=== PATIENT | female | born 1950 | race Caucasian/White ===

== ENCOUNTER 2019-08-14 09:11 | Inpatient (IN) ==
[2019-08-15] MEDS ORDERED: Diphenoxylate/Atropine 1 TAB TABLET PO PRN (17:53)
[2019-08-15] MEDS ORDERED: cloNIDine HCl 0.1 MG TABLET PO PRN (17:53)
[2019-08-15] MEDS: *HR* OxyCODONE Immed Rel 15 MG TABLET PO PRN (19:27)
[2019-08-15] MEDS: FLUoxetine 20 MG CAPSULE PO SCH (20:18)
[2019-08-15] MEDS: *HR* Warfarin 5 MG TABLET PO SCH (20:18)
[2019-08-15] MEDS: *HR* Enoxaparin 100 MG/ML SYRINGE SQ SCH (20:18)
[2019-08-16 05:16] LABS: Basophils % 0.3 %; Eosinophils % 0.7 %; Hematocrit 21.2 % (35.3-44.9); Hemoglobin 7.2 g/dL (11.5-15.4); Immature Granulocytes % 1.3 % (0-4); Lymphocytes # 0.5 K/mcL (0.6-4.6); Lymphocytes % 15.7 %; Mean Corpuscular Hemoglobin 29.4 pg (28.0-33.3); Mean Corpuscular Volume 86.5 fL (83.0-100.0); Monocytes # 0.3 K/mcL (0.0-1.3); Neutrophils # 2.2 K/mcL (1.6-8.9); Platelet Count 193 K/mcL (140-400); Red Blood Count 2.45 M/mcL (3.82-4.97); Red Cell Distribution Width 13.2 % (11.5-14.5)
[2019-08-16 05:26] LABS: INR 1.1
[2019-08-16 05:36] LABS: BUN/Creatinine Ratio 45 (6-26); Blood Urea Nitrogen 26 mg/dL (8-23); Calcium 8.3 mg/dL (8.6-10.3); Carbon Dioxide 27 mEq/L (23-29); Chloride 101 mEq/L (98-107); Glucose 112 mg/dL (70-105); Osmolality,Calculated 288 (280-300); Potassium 3.6 mEq/L (3.5-5.1); Sodium 136 mEq/L (136-145); eGFR For African Americans > 60 (> 60); eGFR For Non-African Americans > 60 (> 60)
[2019-08-16] MEDS: *HR* Enoxaparin 100 MG/ML SYRINGE SQ SCH ×2 (06:20→16:57)
[2019-08-16] MEDS: *HR* OxyCODONE Immed Rel 15 MG TABLET PO PRN ×3 (06:20→19:57)
[2019-08-16] MEDS: Aspirin Enteric Coated 81 MG Tablet PO SCH (08:43)
[2019-08-16] MEDS: FLUoxetine 20 MG CAPSULE PO SCH ×2 (08:43→19:57)
[2019-08-16] MEDS: Venlafaxine XR (24 HR) 150 MG CAP.ER.24H PO SCH (08:43)
[2019-08-16] MEDS: dexAMETHasone 4 MG TABLET PO SCH (08:43)
[2019-08-16] MEDS ORDERED: *HR* Warfarin 5 MG TABLET PO SCH (18:00)
[2019-08-16] MEDS: *HR* LORazepam 0.5 MG TABLET PO PRN (19:56)
[2019-08-17] MEDS: *HR* OxyCODONE Immed Rel 15 MG TABLET PO PRN ×4 (02:14→22:15)
[2019-08-17 05:50] LABS: Basophils % 0.2 %; Eosinophils % 0.5 %; Hematocrit 21.7 % (35.3-44.9); Hemoglobin 7.4 g/dL (11.5-15.4); Immature Granulocytes % 2.8 % (0-4); Lymphocytes % 15.3 %; Mean Corpuscular HGB Conc 34.1 g/dL (31.6-35.5); Mean Corpuscular Hemoglobin 29.6 pg (28.0-33.3); Mean Corpuscular Volume 86.8 fL (83.0-100.0); Mean Platelet Volume 10.1 fL (9.4-12.4); Monocytes # 0.4 K/mcL (0.0-1.3); Monocytes % 10.1 %; Nucleated Red Blood Cells 0.7 /100 WBC (0); Platelet Count 219 K/mcL (140-400); Red Cell Distribution Width 13.1 % (11.5-14.5); Segmented Neutrophils % 71.1 %; White Blood Count 4.2 K/mcL (4.3-11.1)
[2019-08-17 05:51] LABS: Lymphocytes # 0.6 K/mcL (0.6-4.6)
[2019-08-17 05:53] LABS: INR 1.3; Prothrombin Time 14.8 Seconds (9.4-12.1)
[2019-08-17] MEDS: *HR* Enoxaparin 100 MG/ML SYRINGE SQ SCH ×2 (06:05→16:56)
[2019-08-17] MEDS: Aspirin Enteric Coated 81 MG Tablet PO SCH (09:36)
[2019-08-17] MEDS: FLUoxetine 20 MG CAPSULE PO SCH ×2 (09:36→22:15)
[2019-08-17] MEDS: Venlafaxine XR (24 HR) 150 MG CAP.ER.24H PO SCH (09:37)
[2019-08-17] MEDS: dexAMETHasone 4 MG TABLET PO SCH (09:37)
[2019-08-17] MEDS: *HR* Warfarin 5 MG TABLET PO SCH (17:00)
[2019-08-17] MEDS: *HR* LORazepam 0.5 MG TABLET PO PRN (22:15)
[2019-08-18] MEDS: *HR* Enoxaparin 100 MG/ML SYRINGE SQ SCH ×2 (04:49→17:28)
[2019-08-18] MEDS: *HR* OxyCODONE Immed Rel 5 MG TABLET PO PRN ×4 (04:50→23:15)
[2019-08-18 06:11] LABS: INR 1.7; Prothrombin Time 19.2 Seconds (9.4-12.1)
[2019-08-18] MEDS ORDERED: Ergocalciferol (VIT D2) 50,000 UNIT (1.25MG) CAP PO SCH (09:00)
[2019-08-18] MEDS: dexAMETHasone 4 MG TABLET PO SCH (09:30)
[2019-08-18] MEDS: Lisinopril 20 MG TABLET PO SCH (09:30)
[2019-08-18] MEDS: *HR* LORazepam 0.5 MG TABLET PO PRN (09:30)
[2019-08-18] MEDS: hydroCHLOROthiazide 25 MG TABLET PO SCH (09:30)
[2019-08-18] MEDS: FLUoxetine 20 MG CAPSULE PO SCH ×2 (09:30→19:32)
[2019-08-18] MEDS: Aspirin Enteric Coated 81 MG Tablet PO SCH (09:31)
[2019-08-18] MEDS: Venlafaxine XR (24 HR) 150 MG CAP.ER.24H PO SCH (09:31)
[2019-08-18] MEDS: Ergocalciferol (VIT D2) 50,000 UNIT (1.25MG) CAP PO SCH (09:50)
[2019-08-18] MEDS: *HR* Warfarin 5 MG TABLET PO SCH (17:28)
[2019-08-19 06:04] LABS: INR 1.6; Prothrombin Time 18.7 Seconds (9.4-12.1)
[2019-08-19 06:16] LABS: eGFR For African Americans > 60 (> 60); eGFR For Non-African Americans > 60 (> 60)
[2019-08-19] MEDS: *HR* Enoxaparin 100 MG/ML SYRINGE SQ SCH ×2 (06:54→17:47)
[2019-08-19] MEDS: *HR* OxyCODONE Immed Rel 5 MG TABLET PO PRN ×3 (06:55→22:36)
[2019-08-19] MEDS: dexAMETHasone 4 MG TABLET PO SCH (07:51)
[2019-08-19] MEDS: hydroCHLOROthiazide 25 MG TABLET PO SCH (07:51)
[2019-08-19] MEDS: *HR* LORazepam 0.5 MG TABLET PO PRN ×2 (07:51→20:47)
[2019-08-19] MEDS: Aspirin Enteric Coated 81 MG Tablet PO SCH (07:54)
[2019-08-19] MEDS: FLUoxetine 20 MG CAPSULE PO SCH ×2 (07:54→20:47)
[2019-08-19] MEDS: Venlafaxine XR (24 HR) 150 MG CAP.ER.24H PO SCH (07:54)
[2019-08-19] MEDS: Lisinopril 20 MG TABLET PO SCH (07:54)
[2019-08-19] MEDS: *HR* Warfarin 5 MG TABLET PO SCH (17:47)
[2019-08-20] MEDS: *HR* Enoxaparin 100 MG/ML SYRINGE SQ SCH ×2 (06:48→17:18)
[2019-08-20] MEDS: hydroCHLOROthiazide 25 MG TABLET PO SCH (08:33)
[2019-08-20] MEDS: Lisinopril 20 MG TABLET PO SCH (08:33)
[2019-08-20] MEDS: Venlafaxine XR (24 HR) 150 MG CAP.ER.24H PO SCH (08:33)
[2019-08-20] MEDS: FLUoxetine 20 MG CAPSULE PO SCH ×2 (08:33→21:39)
[2019-08-20] MEDS: dexAMETHasone 4 MG TABLET PO SCH (08:34)
[2019-08-20] MEDS: Aspirin Enteric Coated 81 MG Tablet PO SCH (08:34)
[2019-08-20] MEDS: Ergocalciferol (VIT D2) 50,000 UNIT (1.25MG) CAP PO SCH (08:42)
[2019-08-20 11:53] LABS: INR 1.8
[2019-08-20] MEDS: *HR* Warfarin 5 MG TABLET PO SCH (17:18)
[2019-08-20 17:32] LABS: Bilirubin,Urine Negative (Negative); Blood,Urine Trace-intact (Negative); Clarity,Urine Slightly Cloudy (Clear); Color,Urine Yellow (Yellow); Glucose,Urine (UA) Normal (Normal); Ketones,Urine Negative (Negative); Leukocyte Esterase,Urine Small (Negative); Nitrite,Urine Positive (Negative); Protein,Urine 30 mg/dL (Neg-Trace); Urobilinogen,Urine Normal (Normal)
[2019-08-20 17:44] LABS: Bacteria,Urine Many per hpf (None-Few); Squamous Epithelial Cell,Urine Few per lpf (None-Few)
[2019-08-20] MEDS: *HR* OxyCODONE Immed Rel 5 MG TABLET PO PRN (18:42)
[2019-08-20] MEDS: *HR* LORazepam 0.5 MG TABLET PO PRN (21:40)
[2019-08-20] MEDS ORDERED: Acetaminophen 325 MG TABLET PO PRN (22:34)
[2019-08-20] MEDS: cefTRIAXone 2,000 MG in 0.9 % Sodium Chloride Mini Bag 100 ML IVPB SCH (23:45)
[2019-08-21] MEDS: *HR* Enoxaparin 100 MG/ML SYRINGE SQ SCH ×2 (04:05→17:18)
[2019-08-21] MEDS: *HR* OxyCODONE Immed Rel 5 MG TABLET PO PRN ×3 (04:05→20:50)
[2019-08-21 05:08] LABS: Basophils % 0.1 %; Eosinophils % 0.5 %; Hematocrit 19.1 % (35.3-44.9); Hemoglobin 6.2 g/dL (11.5-15.4); Lymphocytes # 0.7 K/mcL (0.6-4.6); Lymphocytes % 8.2 %; Mean Corpuscular HGB Conc 32.5 g/dL (31.6-35.5); Mean Corpuscular Volume 89.3 fL (83.0-100.0); Mean Platelet Volume 10.1 fL (9.4-12.4); Monocytes # 0.5 K/mcL (0.0-1.3); Monocytes % 5.8 %; Nucleated Red Blood Cells 0.4 /100 WBC (0); Platelet Count 250 K/mcL (140-400); Red Blood Count 2.14 M/mcL (3.82-4.97); Red Cell Distribution Width 14.4 % (11.5-14.5); Segmented Neutrophils % 83.4 %; White Blood Count 8.1 K/mcL (4.3-11.1)
[2019-08-21 05:12] LABS: Neutrophils # 6.8 K/mcL (1.6-8.9)
[2019-08-21 05:16] LABS: INR 1.9; Prothrombin Time 21.9 Seconds (9.4-12.1)
[2019-08-21 05:25] LABS: Alanine Aminotransferase 24 Units/L (7-52); Albumin/Globulin Ratio 1.7 (1.1-2.2); Alkaline Phosphatase 200 Units/L (34-104); Aspartate Amino Transferase 24 Units/L (13-39); BUN/Creatinine Ratio 36 (6-26); Bilirubin,Direct 0.2 mg/dL (0.0-0.2); Bilirubin,Indirect 0.6 mg/dL (0.0-1.0); Bilirubin,Total 0.8 mg/dL (0.3-1.0); Blood Urea Nitrogen 22 mg/dL (8-23); Calcium 8.2 mg/dL (8.6-10.3); Carbon Dioxide 26 mEq/L (23-29); Chloride 101 mEq/L (98-107); Globulin 1.8 g/dL (2.4-3.5); Glucose 114 mg/dL (70-105); Osmolality,Calculated 284 (280-300); Potassium 3.1 mEq/L (3.5-5.1); Sodium 135 mEq/L (136-145); Total Protein 4.8 g/dL (6.4-8.9); eGFR For African Americans > 60 (> 60); eGFR For Non-African Americans > 60 (> 60)
[2019-08-21] MEDS: Aspirin Enteric Coated 81 MG Tablet PO SCH (08:07)
[2019-08-21] MEDS: Lisinopril 20 MG TABLET PO SCH (08:08)
[2019-08-21] MEDS: FLUoxetine 20 MG CAPSULE PO SCH ×2 (08:08→20:50)
[2019-08-21] MEDS: hydroCHLOROthiazide 25 MG TABLET PO SCH (08:08)
[2019-08-21] MEDS: dexAMETHasone 4 MG TABLET PO SCH (08:09)
[2019-08-21] MEDS: Venlafaxine XR (24 HR) 150 MG CAP.ER.24H PO SCH (08:09)
[2019-08-21] MEDS ORDERED: Potassium Chloride Elixir 20 MEQ/15 ML UDC PO ONE (08:41)
[2019-08-21] MEDS: *HR* LORazepam 0.5 MG TABLET PO PRN (17:18)
[2019-08-21] MEDS: *HR* Warfarin 5 MG TABLET PO SCH (17:20)
[2019-08-21] MEDS ORDERED: 0.9 % Sodium Chloride 500 ML IVC ONE (22:51)
[2019-08-22] MEDS: cefTRIAXone 2,000 MG in 0.9 % Sodium Chloride Mini Bag 100 ML IVPB SCH ×2 (00:04→20:24)
[2019-08-22 05:43] LABS: Basophils % 0.1 %; Eosinophils % 0.6 %; Hematocrit 17.3 % (35.3-44.9); Immature Granulocytes % 1.6 % (0-4); Lymphocytes # 0.5 K/mcL (0.6-4.6); Lymphocytes % 7.7 %; Mean Corpuscular HGB Conc 31.8 g/dL (31.6-35.5); Mean Corpuscular Hemoglobin 29.3 pg (28.0-33.3); Mean Platelet Volume 10.8 fL (9.4-12.4); Monocytes # 0.3 K/mcL (0.0-1.3); Monocytes % 4.6 %; Neutrophils # 5.8 K/mcL (1.6-8.9); Nucleated Red Blood Cells 0.6 /100 WBC (0); Platelet Count 251 K/mcL (140-400); Red Blood Count 1.88 M/mcL (3.82-4.97); Red Cell Distribution Width 14.9 % (11.5-14.5); Segmented Neutrophils % 85.4 %; White Blood Count 6.8 K/mcL (4.3-11.1)
[2019-08-22] MEDS: *HR* Enoxaparin 100 MG/ML SYRINGE SQ SCH (05:45)
[2019-08-22] MEDS: *HR* OxyCODONE Immed Rel 5 MG TABLET PO PRN ×3 (05:46→18:55)
[2019-08-22 05:56] LABS: BUN/Creatinine Ratio 38 (6-26); Blood Urea Nitrogen 24 mg/dL (8-23); Calcium 8.2 mg/dL (8.6-10.3); Carbon Dioxide 24 mEq/L (23-29); Chloride 106 mEq/L (98-107); Glucose 110 mg/dL (70-105); Osmolality,Calculated 293 (280-300); Potassium 3.4 mEq/L (3.5-5.1); Sodium 139 mEq/L (136-145); eGFR For African Americans > 60 (> 60); eGFR For Non-African Americans > 60 (> 60)
[2019-08-22 07:12] LABS: Platelet Estimate Normal (Normal)
[2019-08-22 07:13] LABS: Hemoglobin 5.5 g/dL (11.5-15.4)
[2019-08-22] MEDS: Venlafaxine XR (24 HR) 150 MG CAP.ER.24H PO SCH (08:18)
[2019-08-22] MEDS: dexAMETHasone 4 MG TABLET PO SCH (08:18)
[2019-08-22] MEDS: hydroCHLOROthiazide 25 MG TABLET PO SCH (08:18)
[2019-08-22] MEDS: Aspirin Enteric Coated 81 MG Tablet PO SCH (08:18)
[2019-08-22] MEDS: Lisinopril 20 MG TABLET PO SCH (08:18)
[2019-08-22] MEDS: FLUoxetine 20 MG CAPSULE PO SCH ×2 (08:18→20:23)
[2019-08-22] MEDS: *HR* Warfarin 5 MG TABLET PO SCH (11:23)
[2019-08-22] MEDS: *HR* LORazepam 0.5 MG TABLET PO PRN (20:23)
[2019-08-22] MEDS: Acetaminophen 325 MG TABLET PO PRN (23:30)
[2019-08-23] MEDS: *HR* OxyCODONE Immed Rel 5 MG TABLET PO PRN ×3 (00:25→11:58)
[2019-08-23] MEDS: *HR* LORazepam 0.5 MG TABLET PO PRN (02:53)
[2019-08-23 07:45] LABS: INR 1.5
[2019-08-23 07:59] LABS: BUN/Creatinine Ratio 39 (6-26); Blood Urea Nitrogen 21 mg/dL (8-23); Calcium 8.3 mg/dL (8.6-10.3); Carbon Dioxide 28 mEq/L (23-29); Chloride 101 mEq/L (98-107); Glucose 102 mg/dL (70-105); Osmolality,Calculated 283 (280-300); Potassium 3.5 mEq/L (3.5-5.1); Sodium 135 mEq/L (136-145); eGFR For African Americans > 60 (> 60); eGFR For Non-African Americans > 60 (> 60)
[2019-08-23 08:07] VITALS: BP 134/65
[2019-08-23] MEDS: Aspirin Enteric Coated 81 MG Tablet PO SCH (08:17)
[2019-08-23] MEDS: Acetaminophen 325 MG TABLET PO PRN (08:17)
[2019-08-23] MEDS: hydroCHLOROthiazide 25 MG TABLET PO SCH (08:17)
[2019-08-23] MEDS: Lisinopril 20 MG TABLET PO SCH (08:17)
[2019-08-23] MEDS: FLUoxetine 20 MG CAPSULE PO SCH (08:17)
[2019-08-23] MEDS: Venlafaxine XR (24 HR) 150 MG CAP.ER.24H PO SCH (08:18)
[2019-08-23] MEDS: dexAMETHasone 4 MG TABLET PO SCH (08:18)
[2019-08-23] MEDS ORDERED: cefTRIAXone 2,000 MG in Water for inj. (sterile) 20 ML IVP ONE (11:13)
== END 2019-08-23 12:44 | disposition hospice, home (50) | DRG 560 ==
LOC: INPGRE 08-15 16:33
PROVIDERS: ADMIT Family Medicine; ATTEND Family Medicine